=== PATIENT | female | born 1975 | race Asian ===

== ENCOUNTER → 2017-04-20 | Outpatient (CLI) | payer BC | LOC: FIMAGING 13:24 | PROVIDERS: ATTEND Advanced Practice Midwife | DX: O09.522 Supervision of elderly multigravida, second trimester (principal); O34.219 Maternal care for unspecified type scar from previous cesarean delivery; Z3A.19 19 weeks gestation of pregnancy ==

== ENCOUNTER 2017-09-08 10:35 | Inpatient (IN) | payer BC ==
[2017-09-08] MEDS ORDERED: OLIVE OIL 118 ML BTL MISC PRN (11:05)
[2017-09-08] MEDS ORDERED: EPSOM SALT 454 GM TP PRN (11:05)
[2017-09-08] MEDS ORDERED: AMPICILLIN SODIUM 2 GM in NS 100 ML IV ONE (11:05)
[2017-09-08] MEDS ORDERED: AMMONIA AROMATIC 1 EACH AMP IH PRN (11:05)
[2017-09-08] MEDS ORDERED: MISOPROSTOL 200 MCG TAB PO PRN (11:05)
[2017-09-08] MEDS ORDERED: LIDOCAINE 1% 300 MG/30 ML SDV SC PRN (11:05)
[2017-09-08] MEDS ORDERED: TERBUTALINE SULFATE 1 MG/ML VIAL IV PRN (11:05)
[2017-09-08] MEDS ORDERED: LR 1,000 ML IV PRN (11:05)
[2017-09-08] MEDS ORDERED: IBUPROFEN 600 MG TAB PO PRN (11:05)
[2017-09-08] MEDS ORDERED: OXYTOCIN/RINGERS LACTATE 1,000 ML IV PRN (11:05)
--- NOTE | 2017-09-08 12:05 | PDGENHP ---
History and Physical - Chief Complaint SROM at 0830 this morning - History of Present Illness 42 yo at 39w6d by IUI dating c/w 10 wk US, presents with SROM of clear fluid this morning at 0830, and the onset of contractions a few hours priot to that. care with [facility]. Preg C/B AMA - has followed std protocol of surveillance since 36wk. Hx of C/S with first delivery, arrest of descent at 8cm. Good FM, no VB, no ssx PIH. labs: 12.9/36.2 plt 211 O pos Ab scre neg RPR NR HbsAg neg HIV neg Std panel neg GC/Chl neg Innatal neg 28 wk: 12.7/37.0 1hr GTT 114 PMH: none POB: LTCS at 8 cm, at 41 wk, arrest of desccent, 7lb female PSH: C/S and D&C for MAB Medications: PNV All: NKDA Soc: to [place], -/-/-, scientis FamHx: M parkinson's and Rheum Arth O: VSS afeb 37.0 94 122/76 FHR 145 reactive, Cat 1 toco - q 2-3 SVE 3/80/-2, clear fluid gen - pleasant female, working through contractions CV - RRR chest - CTAB abd - gravid, soft, NT ext - trace BLE edema History Information - Allergies/Home Medication List Allergies/Adverse Reactions: No Known Allergies Allergy (Unverified 09/08/17 11:14) Home Medications: Vit27&Calcium/Iron/FA [] 1 tab PO DAILY 02/02/14 [Last Taken ] I have personally reviewed and updated: family history, medical history, social history, surgical history - Social History Smoking Status: Never smoked Review of Systems Review of Systems: ROS: 10pt was reviewed & negative except for what was stated in HPI & below Physical Exam Physical Exam: see HPI Assessment & Plan Assessment: 42 yo at 39w6d with SROM, in early labor, desires , GBS pos Plan: Admit Written informed consent signed. Amp for GBS pos. Anticipate Vag delivery Alcira Banks MD, FACOG, [facility]
[2017-09-08 12:29] LABS: PLATELET COUNT 167 10^3/uL (150-400)
--- NOTE | 2017-09-08 13:03 | SOAPPROG ---
SOAP Progress Note Assessment/Plan: Assessment: 42 yo at 39w6d with SROM x 4.5 hours, with chorioamnionitis ( fever, mat tachy, tachy) Plan: Add gentamicin. Already on amp for GBS pos. Continue to labor. Tylenol. Alcira Banks MD, FACOG, [facility] 09/08/17 13:00 Subjective: Informed of fever by RN Objective: Laboratory Results 09/08/17 12:00 39.6 114 117/70 - Time Spent With Patient Time Spent With Patient: not for this note - Pending Discharge Pending Discharge Within 24 Hours: No Pending Discharge Within 48 Hours: No ICD10 Worksheet Patient Problems: Problems Problem Status Onset AMA (advanced maternal age) multigravida 35+ Acute delivery delivered Acute intolerance to labor, delivered, current hospitalization Acute
[2017-09-08] MEDS ORDERED: ACETAMINOPHEN 500 MG TAB PO PRN (13:06)
[2017-09-08] MEDS ORDERED: GENTAMICIN PHARMACY TO DOSE MISC SCH (13:15)
[2017-09-08] MEDS ORDERED: CEFAZOLIN 1 GM/DEXTROSE/50 ML BAG IV ONE (13:28)
[2017-09-08] MEDS: D5W IV SCH (13:32)
[2017-09-08] MEDS: GENTAMICIN SULFATE IV SCH (13:32)
--- NOTE | 2017-09-08 14:29 | OBPROG ---
Labor Progress Note Assessment/Plan: Assessment: 42 yo at 39w6d with SROM x 4.5 hours, with chorioamnionitis ( fever, mat tachy, tachy) Plan: Add gentamicin. Already on amp for GBS pos. Continue to labor. Tylenol. Alcira Banks MD, FACOG, [facility] 09/08/17 14:25 A/P: Chorioamnionitis remote from delivery, tachycardia persistent over 2 hours, and now with occasional variable decelerations Written informed consent obtained. Will proceed with repeat C/S. Clindamycin pre-op added to gent and amp regimen. Alcira Banks MD, FACOG Subjective/Intrapartum Course: 09/08/17 14:29 Pt anxious about baby's welfare. Contractions are feeling a bit stronger. Objective: 09/08/17 12:00 Patient ABO/Rh O POSITIVE 09/08/17 12:00 - SVE Dilation (cm): 5 Effacement (%): 80 Station: 0 Membranes: SROM Amniotic Fluid Color: Bloody - Contraction Pattern Assessment Current Contraction Pattern: Regular Oxytocin Orders Assessment - Pre-Induction/Augmentation Assessment Gestational Age: 39 week(s) and 6 day(s) ICD10 Worksheet Patient Problems: Problems Problem Status Onset AMA (advanced maternal age) multigravida 35+ Acute delivery delivered Acute intolerance to labor, delivered, current hospitalization Acute
[2017-09-08] MEDS: CLINDAMYCIN 900 MG/DEXTROSE 50 ML IV SCH ×2 (14:43→22:56)
[2017-09-08] MEDS: AMPICILLIN SODIUM 1 GM in NS 100 ML IV SCH (15:54)
[2017-09-08] MEDS ORDERED: morphINE PF 5 MG/10 ML INJ ONE (16:46)
[2017-09-08] MEDS ORDERED: fentaNYL 100 MCG/2 ML INJ ONE (16:47)
--- NOTE | 2017-09-08 16:48 | OBPROG ---
Labor Progress Note Assessment/Plan: Assessment: 42 yo at 39w6d with SROM x 4.5 hours, with chorioamnionitis ( fever, mat tachy, tachy) Plan: Add gentamicin. Already on amp for GBS pos. Continue to labor. Tylenol. Alcira Banks MD, FACOG, [facility] 09/08/17 14:25 A/P: Chorioamnionitis remote from delivery, tachycardia persistent over 2 hours, and now with occasional variable decelerations Written informed consent obtained. Will proceed with repeat C/S. Clindamycin pre-op added to gent and amp regimen. Alcira Banks MD, FACOG 09/08/17 16:45 A/P: Delayed due to acuity of pts on unit, and status reassuring now, but recheck of cervix, still remote from delivery. Will proceed with C/S as originally planned. Subjective/Intrapartum Course: 09/08/17 14:29 Pt anxious about baby's welfare. Contractions are feeling a bit stronger. 09/08/17 16:46 Pt offered option to continue to proceed with labor, as has made progress, was told was 9 cm. I rechecked her myself and is 7cm dilated. Agrees to proceed with R-C/S now. Objective: 09/08/17 12:00 Patient ABO/Rh O POSITIVE 09/08/17 12:00 Temp Pulse Resp BP Pulse Ox 37.2 C 125 H 28 H 120/80 98 09/08/17 14:51 09/08/17 14:51 09/08/17 14:51 09/08/17 14:51 09/08/17 14:51 - SVE Dilation (cm): 7 Effacement (%): 90 Station: 0 Membranes: SROM Amniotic Fluid Color: Bloody - Contraction Pattern Assessment Current Contraction Pattern: Regular Oxytocin Orders Assessment - Pre-Induction/Augmentation Assessment Gestational Age: 39 week(s) and 6 day(s) ICD10 Worksheet Patient Problems: Problems Problem Status Onset AMA (advanced maternal age) multigravida 35+ Acute delivery delivered Acute intolerance to labor, delivered, current hospitalization Acute
[2017-09-08] MEDS ORDERED: OXYTOCIN 100 UNITS/10 ML VIAL ONE (17:23)
[2017-09-08] MEDS ORDERED: ONDANSETRON 4 MG/2 ML VIAL ONE ×2 (17:23)
[2017-09-08] MEDS ORDERED: DEXAMETHASONE 4 MG/ML VIAL ONE ×2 (17:23)
[2017-09-08] MEDS ORDERED: PHENYLEPHRINE HCL 100 MCG/ML SYR ONE (17:24)
[2017-09-08] MEDS ORDERED: PROMETHAZINE HCL 25 MG/ML INJ IVP PRN (18:21)
[2017-09-08] MEDS ORDERED: SIMETHICONE 80 MG TAB CHEW PO PRN (18:21)
[2017-09-08] MEDS ORDERED: DOCUSATE SODIUM 100 MG CAP PO PRN (18:21)
[2017-09-08] MEDS ORDERED: PHENYLEPHRINE HCL 100 MCG/ML SYR IVP PRN (18:25)
[2017-09-08] MEDS ORDERED: ONDANSETRON 4 MG/2 ML VIAL IVP PRN (18:25)
[2017-09-08] MEDS ORDERED: NALOXONE HCL 0.4 MG/ML INJ IVP PRN (18:25)
--- NOTE | 2017-09-08 18:27 | POSTANESTH ---
Post Anesthetic Evaluation Cardiovascular Status: Normal, Stable, Similar to Pre-Op Cond Respiratory Status: Normal, Stable, Similar to Pre-op Cond. Level of Consciousness/Mental Status: Can Participate in Eval, Alert and Oriented Pain Control: Adequate, Prn Tx Ordered Nausea/Vomiting Control: Adequate, Prn Tx Ordered Complications Possibly Related to Anesthesia: None Noted
--- NOTE | 2017-09-08 18:31 | PREANESOB ---
Obstetric Pre-Anesthesia Info - General Info Proposed Procedure: C Section. : 4 Para: 1 SANDOVAL: 09/09/17 Gestational Age: 39 week(s) and 6 day(s) - Info Status: Full Term Monitors: External FHR Baseline (bpm): 150 - Labor Status Cervical Dilation per last OB SVE: 7 Station per last OB SVE: 0 Amniotic Fluid Color: Bloody Indications for Current Section: Other (Specify) (Chorioamnionitis) Labor Epidural: No Anesthesia Allergies/Adverse Reactions: Allergy/AdvReac Type Severity Reaction Status Date / Time No Known Allergies Allergy Unverified 09/08/17 11:14 Home Medications: Medication Instructions Recorded Vit27&Calcium/Iron/FA 1 tab PO DAILY 02/02/14 [] Visit Medications: Generic Name Dose Route Start Last Admin Trade Name Freq PRN Reason Stop Dose Admin Acetaminophen 1,000 mg 09/08/17 13:06 09/08/17 13:19 Tylenol PO 03/07/18 13:05 1,000 mg Q6HRS PRN Administration Pain, Mild/Fever, Can Take PO Ammonia (Aromatic Spirit) 1 each 09/08/17 11:05 Ammonia Aromatic IH 09/18/17 11:04 ONCE PRN Fainting Diphenhydramine HCl 25 - 50 mg 09/08/17 18:25 Benadryl Injection IVP 09/09/17 18:24 Q6HRS PRN Itching Gentamicin Sulfate 1 each 09/08/17 13:15 Gentamicin Pharmacy To Dose MISC 03/07/18 13:14 AD SADE Protocol Ampicillin Sodium 1 gm/ Sodium 100 mls @ 200 mls/hr 09/08/17 15:05 09/08/17 15:54 Chloride IV 10/08/17 15:04 100 mls Q4H SADE Administration Protocol Lactated Ringer's 1,000 mls @ 0 mls/hr 09/08/17 11:05 09/08/17 12:04 Lr IV 09/09/17 11:04 1,000 mls PRN PRN Administration SEE PROTOCOL CONDITIONS Protocol Per Protocol Oxytocin/Lactated Ringer's 1,000 mls @ 0 mls/hr 09/08/17 11:05 Pitocin 20 Units/Lr (Premix) IV PRN PRN Post bleeding Per Protocol Gentamicin Sulfate 320 mg/ 108 mls @ 108 mls/hr 09/08/17 13:30 09/08/17 13:32 Dextrose IV 10/08/17 13:29 108 mls Q24H SADE Administration Clindamycin Phosphate/Dextrose 50 mls @ 100 mls/hr 09/08/17 14:30 09/08/17 14 :43 Cleocin 900 Mg (Premix) IV 09/09/17 14:29 50 mls Q8HRS SADE Administration Protocol Ibuprofen 600 mg 09/08/17 11:05 Motrin PO ONCE PRN post , pain Lidocaine HCl 300 mg 09/08/17 11:05 Lidocaine Hcl 1% SC 03/07/18 11:04 ONCE PRN episiotomy Magnesium Sulfate 454 gm 09/08/17 11:05 Epsom Salt TP 03/07/18 11:04 Q1H PRN perineal discomfort Misoprostol 800 - 1,000 mcg 09/08/17 11:05 Cytotec PO 03/07/18 11:04 ONCE PRN Vaginal Atony/Bleeding Naloxone HCl 0.4 mg 09/08/17 18:25 Narcan IVP 09/09/17 18:26 PRN PRN respiratory depression [place] Oil 118 ml 09/08/17 11:05 Sweet Oil MISC 03/07/18 11:04 ONCE PRN perineal massage Ondansetron HCl 4 mg 09/08/17 18:25 Zofran IVP 09/09/17 18:24 Q4HRS PRN Nausea/Vomiting, Can't Take PO Phenylephrine HCl 100 mcg 09/08/17 18:25 Neosynephrine IVP 09/08/17 19:25 Q1M PRN Hypotension Terbutaline Sulfate 0.25 mg 09/08/17 11:05 Brethine IV 03/07/18 11:04 ONCE PRN Tachysystole Discontinued Medications Generic Name Dose Route Start Last Admin Trade Name Freq PRN Reason Stop Dose Admin Cefazolin Sodium/Dextrose Confirm 09/08/17 13:28 Ancef 1 Gm (Premix) Administered 09/08/17 13:29 Dose 1 gm IV .STK-MED ONE Dexamethasone Confirm 09/08/17 17:23 Decadron Injection Administered 09/08/17 17:24 Dose 4 mg .ROUTE .STK-MED ONE Dexamethasone Confirm 09/08/17 17:23 Decadron Injection Administered 09/08/17 17:24 Dose 4 mg .ROUTE .STK-MED ONE Fentanyl Confirm 09/08/17 16:47 Sublimaze Administered 09/08/17 16:48 Dose 100 mcg .ROUTE .STK-MED ONE Ampicillin Sodium 2 gm/ Sodium 110 mls @ 220 mls/hr 09/08/17 11:05 09/08/17 12:04 Chloride IV 09/08/17 11:34 110 mls ONCE ONE Administration Protocol Clindamycin Phosphate/Dextrose 50 mls @ 100 mls/hr 09/08/17 22:00 Cleocin 900 Mg (Premix) IV 09/09/17 21:59 Q8HRS SADE Protocol Morphine Sulfate Confirm 09/08/17 16:46 Morphine Pf 5 Mg/10 Ml Administered 09/08/17 16:47 Dose 5 mg .ROUTE .STK-MED ONE Ondansetron HCl Confirm 09/08/17 17:23 Zofran Administered 09/08/17 17:24 Dose 4 mg .ROUTE .STK-MED ONE Ondansetron HCl Confirm 09/08/17 17:23 Zofran Administered 09/08/17 17:24 Dose 4 mg .ROUTE .STK-MED ONE Oxytocin Confirm 09/08/17 17:23 Pitocin Administered 09/08/17 17:24 Dose 100 units .ROUTE .STK-MED ONE Phenylephrine HCl Confirm 09/08/17 17:24 Neosynephrine Administered 09/08/17 17:25 Dose 1,000 mcg .ROUTE .STK-MED ONE - Anesthesia History Response to Local Anesthetics: Normal Anesthesia & Operative History: No Prior Problems Family Anesthesia History: Negative - Social History Substance Use/Abuse: Denies - Vital Signs Latest Vital Signs (Nursing): Temp Pulse Resp BP Pulse Ox 37.2 C 125 H 28 H 120/80 98 09/08/17 14:51 09/08/17 14:51 09/08/17 14:51 09/08/17 14:51 09/08/17 14:51 Blood Pressure: 120/80 Heart Rate: 125 Height/Weight (Nursing): Height 165.1 cm Weight 63.503 kg - Focused Exam Neck exam: FROM Mallampati Score: Class 1 Mouth exam: normal dental/mouth exam Pulmonary: no respiratory distress Cardiovascular: regular rate and rhythym Labs: 09/08/17 12:00 Patient ABO/Rh O POSITIVE 09/08/17 12:00 - Plan Anesthetic Plan: SAB Consent Signed and on Chart: Yes Patient/Guardian Understands and Agrees to Plan: Yes Urgent/Emergent Case: Anes eval completed preop but documented later for safe timely pt care
[2017-09-08] MEDS ORDERED: oxyCODONE IR 5 MG TAB PO PRN (18:32)
--- NOTE | 2017-09-08 18:50 | POSTOPPROG ---
Post Op Note Date of Operation: 09/08/17 Surgeon: Alcira Banks Educational Therapist: Ligia Coello DO Anesthesiologist: Guillermo Juarez MD Anesthesia: Spinal Pre-op Diagnosis: chorioamnionitis remote from delivery, prior section Post-op Diagnosis: chorioamnionitis remote from delivery, prior section Indication: chorioamnionitis remote from delivery, prior section Procedure: Repeat section Findings: normal appearing uterus, tubes, ovaries, female baby Apgars 8 and 9 Inf/Abcess present in the surg proc area at time of surgery?: No EBL: 500-1000 Total fluids administered: 1999 Complications: none
[2017-09-08] MEDS ORDERED: KETOROLAC 30 MG/1 ML SDV ONE (19:27)
[2017-09-08] MEDS: KETOROLAC 30 MG/1 ML SDV IVP SCH (19:36)
--- NOTE | 2017-09-08 19:55 | GOP ---
[f rep st] OPERATIVE REPORT DATE OF OPERATION: 09/08/2017 SURGEON: Alcira Banks MD CURLING MACHINE OPERATOR: Ligia Coello DO. Need for adequate retraction and exposure. ANESTHESIOLOGIST: Ben Juarez MD. PREOPERATIVE DIAGNOSIS: Chorioamnionitis, remote from delivery, failed Vaginal after attempt POSTOPERATIVE DIAGNOSIS: Chorioamnionitis, remote from delivery, failed Vaginal after attempt PROCEDURE PERFORMED: Repeat Low Transverse Section FINDINGS: Normal-appearing uterus, tubes, and ovaries. Female delivered from the vertex presentation with of 8 and 9. IV FLUIDS: 2000 mL. URINE OUTPUT: 300 mL by urinary catheter. COMPLICATIONS: None. ESTIMATED BLOOD LOSS: 800 mL. INDICATIONS: 42-year-old 4, P 1-0-2-1, who presented in labor at 39 weeks and 6 days after rupture of membranes, releasing clear fluid. She has a history of a prior - arrest of dilation/descent at 8 cm. She progressed slowly and developed chorioamnionitis. Persistent tachycardia occurred for 2-3 hours after diagnosis. The decision was made to pursue the section. She was checked immediately prior to being taken to the operating room and her cervix was 7 cm dilated. Written informed consent was obtained. She was taken to the operating room. DESCRIPTION OF PROCEDURE: In the operating room, time-out was performed. Spinal anesthetic was placed. She was then placed in the dorsal supine position. She was prepped and draped in the standard fashion. A Stapleton catheter was already in place. Due to the chorioamnionitis, she had already received numerous doses of ampicillin, a dose of gentamycin, and a dose of clindamycin. A time out was performed. An incision was made in the skin and taken down sharply to the fascia. The fascia was incised in the midline and this was extended laterally. The superior aspect of the incision was grasped with Aletha clamps. The muscle was dissected away sharply and bluntly from the fascia. This was repeated on the lower aspect of the incision. The rectus muscles were in the midline and the peritoneum was entered bluntly. The peritoneal opening was extended in a blunt fashion. A bladder flap was created sharply. A bladder blade was placed over the bladder flap. Incision was made into the uterus and extended laterally in a blunt fashion. Clear fluid was released. The vertex was able to be grasped and elevated up and through the hysterotomy. mouth and nose were bulb suctioned. The remainder of the fetus was delivered easily with the assistance of fundal pressure. Delayed cord clamping occurred for 1 minute. The was handed to the awaiting SEARCH ENGINE OPTIMIZER. The placenta then delivered with the assistance of uterine massage. The hysterotomy was repaired in a running locked fashion for the 1st layer with 0 Monocryl. A 2nd imbricating layer was placed, also with 0 Monocryl suture. The gutters were cleared of all clots and debris. The uterus was replaced into the abdomen. Hemostasis at the hysterotomy was noted after the use of some cautery. The fascia was then closed with 0 PDS in a running fashion. Calvin's fascia was then closed with 3-0 Monocryl in a running fashion. The skin was then closed with 4-0 Monocryl in a running subcuticular fashion. Benzoin and Steri-Strips were placed over the incision. A dressing was then also placed. Sponge, lap, and needle counts were correct x2. The patient was taken to the recovery room in stable condition. /[id number]/MODL MTDD
[2017-09-08] MEDS ORDERED: AMPICILLIN SODIUM 1 GM in NS 100 ML IV SCH (22:00)
[2017-09-08] MEDS ORDERED: CLINDAMYCIN 900 MG/DEXTROSE 50 ML IV SCH (22:00)
[2017-09-09] MEDS: ACETAMINOPHEN 325 MG TAB PO SCH ×5 (00:13→20:56)
[2017-09-09] MEDS: AMPICILLIN SODIUM 1 GM in NS 100 ML IV SCH (00:43)
[2017-09-09] MEDS: KETOROLAC 30 MG/1 ML SDV IVP SCH ×3 (02:06→14:48)
--- NOTE | 2017-09-09 09:38 | OBPP ---
Progress Note Assessment/Plan: Assessment: [id number] s/p repeat c/s with chorio POD#1 anemia Plan: routine post op care cont abx, last dose @ 1330, july d/c hep lock after d/c lagos today start PO iron BID cont plan to d/c home 48-72hrs 09/09/17 09:35 09/09/17 09:39 Subjective/ Course: 09/09/17 09:37 Pt doing well, she denies any pain or heavy bleeding. she is . She is out of bed, will plan to ambulate. voiding via lagos. Objective: 09/09/17 06:15 Patient ABO/Rh O POSITIVE 09/08/17 12:00 Temp Pulse Resp BP Pulse Ox 36.6 C 81 16 80/56 L 95 09/09/17 08:00 09/09/17 08:00 09/09/17 08:00 09/09/17 08:00 09/09/17 08:00 Uterine Position/Fundal Height: Umbilicus -1, Midline Uterine Tone: Firm Physical Exam - Physical Exam General Appearance: WD/WN, alert, no apparent distress Respiratory: lungs clear, normal breath sounds Cardiac/Chest: regular rate, rhythm Abdomen: non-tender, soft, dressing (C/D/I) Extremities: non-tender Skin: normal color, warm/dry Neuro/Psych: alert, normal mood/affect, oriented x 3
[2017-09-09] MEDS ORDERED: IRON POLYSAC/IRON HEME 28 MG TAB PO SCH (09:45)
[2017-09-09] MEDS: FERROUS SULFATE 325 MG TAB PO SCH ×2 (12:34→20:56)
[2017-09-09] MEDS: GENTAMICIN SULFATE IV SCH (13:39)
[2017-09-09] MEDS: D5W IV SCH (13:39)
[2017-09-10] MEDS: ACETAMINOPHEN 325 MG TAB PO SCH ×4 (04:42→23:50)
[2017-09-10] MEDS: FERROUS SULFATE 325 MG TAB PO SCH ×2 (10:30→20:45)
--- NOTE | 2017-09-10 13:06 | OBPP ---
Progress Note Assessment/Plan: Assessment: 42 yo at 39w6d with SROM x 4.5 hours, with chorioamnionitis ( fever, mat tachy, tachy) Plan: Add gentamicin. Already on amp for GBS pos. Continue to labor. Tylenol. Alcira Banks MD, FACOG, [facility] 09/08/17 14:25 A/P: Chorioamnionitis remote from delivery, tachycardia persistent over 2 hours, and now with occasional variable decelerations Written informed consent obtained. Will proceed with repeat C/S. Clindamycin pre-op added to gent and amp regimen. Alcira Banks MD, FACOG 09/08/17 16:45 A/P: Delayed due to acuity of pts on unit, and status reassuring now, but recheck of cervix, still remote from delivery. Will proceed with C/S as originally planned. 09/10/17 13:02 A/P: 42 yo [id number], POD#2 s/p R-C/S, Failed in setting of chorioamnionitis remote from delivery. Received one dose each of amp, gent and clinda in the period. Has been afebrile. Doing well, continue routine post op cares. Anticipate dc home tomorrow. Rx for oxycodone sent down to [facility], will keep secure on unit until ready for dc tomorrow. Alcira Banks MD, FACOG [facility] 09/10/17 13:09 Subjective/ Course: 09/09/17 09:37 Pt doing well, she denies any pain or heavy bleeding. she is . She is out of bed, will plan to ambulate. voiding via lagos. 09/10/17 13:04 Doing well. Has only been taking Tylenol for pain. going well - has been pumping too. Ambulating, voiding, + BM all without difficulty. Ghada reg diet. Objective: 09/09/17 06:15 Patient ABO/Rh O POSITIVE 09/08/17 12:00 Temp Pulse Resp BP Pulse Ox 36.9 C 75 16 93/61 L 93 09/10/17 05:00 09/10/17 05:00 09/10/17 05:00 09/10/17 05:00 09/10/17 05:00 gen - pleasant female, in street clothes CV - RRR chest - CTAB abd - soft, fundus firm at u-3, + BS, inc - C/D/I with steristrips (some residural dry sanguinous drng present < 1 cm) ext - calves NT, tr edema Uterine Position/Fundal Height: Umbilicus -3 Uterine Tone: Firm
[2017-09-10 20:04] VITALS: BP 96/66
[2017-09-11] MEDS: ACETAMINOPHEN 325 MG TAB PO SCH ×2 (05:48→08:11)
[2017-09-11] MEDS: FERROUS SULFATE 325 MG TAB PO SCH (08:09)
--- NOTE | 2017-09-11 10:34 | OBPP ---
Progress Note Assessment/Plan: Assessment: 42 y/o POD #3 s/p Rpt c section secondary to failed Plan: D/c home today with Rx Oxycodone prn and Tylenol and Ibuprofen prn. Follow-up @ [facility] 2, 4 and 6 weeks. 09/11/17 10:35 Subjective/ Course: 09/09/17 09:37 Pt doing well, she denies any pain or heavy bleeding. she is . She is out of bed, will plan to ambulate. voiding via lagos. 09/10/17 13:04 Doing well. Has only been taking Tylenol for pain. going well - has been pumping too. Ambulating, voiding, + BM all without difficulty. Ghada reg diet. 09/11/17 10:27 Pt is doing well today. She has good pain control on only Tylenol. She is ambulating and voiding well without difficulty. She has min lochia and had a + BM this am. Breast feeding is going well and baby is good and they are ready to d/c home. Objective: 09/09/17 06:15 Patient ABO/Rh O POSITIVE 09/08/17 12:00 Temp Pulse Resp BP Pulse Ox 36.9 C 96 20 96/66 L 95 09/10/17 20:00 09/10/17 20:00 09/10/17 20:00 09/10/17 20:00 09/10/17 20:00 Uterine Position/Fundal Height: Umbilicus -2 Physical Exam - Physical Exam General Appearance: alert, no apparent distress Neck: non-tender, full range of motion, supple Respiratory: chest non-tender, lungs clear, normal breath sounds Cardiac/Chest: regular rate, rhythm Abdomen: normal bowel sounds, incision (c/d/i) Extremities: swelling (no), Jeremiah's sign (neg)
--- NOTE | 2017-09-11 10:42 | OBDEL ---
Info Type: Repeat Presentation at Delivery: Vertex L&D Analgesia/Anesthesia Type: Spinal GBS+: Yes Antibiotic Used for + GBS: Ampicillin Intrapartum Medications: Generic Name Dose Route Start Last Admin Trade Name Andrew PRN Reason Stop Dose Admin Acetaminophen 650 mg 09/09/17 00:00 09/11/17 08:11 Tylenol PO 03/08/18 00:00 650 mg Q6HRS SADE Administration Ferrous Sulfate 325 mg 09/09/17 09:45 09/11/17 08:09 Ferrous Sulfate PO 03/08/18 09:44 325 mg BID SADE Administration Oxytocin/Lactated Ringer's 1,000 mls @ 0 mls/hr 09/08/17 11:05 09/08/17 19:36 Pitocin 20 Units/Lr (Premix) IV 1,000 mls PRN PRN Administration Post bleeding Per Protocol Discontinued Medications Generic Name Dose Route Start Last Admin Trade Name Andrew PRN Reason Stop Dose Admin Acetaminophen 1,000 mg 09/08/17 13:06 09/08/17 13:19 Tylenol PO 03/07/18 13:05 1,000 mg Q6HRS PRN Administration Pain, Mild/Fever, Can Take PO Ampicillin Sodium 2 gm/ Sodium 110 mls @ 220 mls/hr 09/08/17 11:05 09/08/17 12:04 Chloride IV 09/08/17 11:34 110 mls ONCE ONE Administration Protocol Ampicillin Sodium 1 gm/ Sodium 100 mls @ 200 mls/hr 09/08/17 15:05 09/09/17 00:43 Chloride IV 10/08/17 15:04 Not Given Q4H SADE Protocol Lactated Ringer's 1,000 mls @ 0 mls/hr 09/08/17 11:05 09/08/17 12:04 Lr IV 09/09/17 11:04 1,000 mls PRN PRN Administration SEE PROTOCOL CONDITIONS Protocol Per Protocol Gentamicin Sulfate 320 mg/ 108 mls @ 108 mls/hr 09/08/17 13:30 09/09/17 13:39 Dextrose IV 09/09/17 14:29 108 mls Q24H SADE Administration Clindamycin Phosphate/Dextrose 50 mls @ 100 mls/hr 09/08/17 14:30 09/08/17 22 :56 Cleocin 900 Mg (Premix) IV 09/08/17 22:29 50 mls Q8HRS SADE Administration Protocol Ampicillin Sodium 1 gm/ Sodium 100 mls @ 200 mls/hr 09/08/17 22:00 09/08/17 22:02 Chloride IV 09/08/17 22:29 100 mls Q6H SADE Administration Protocol Ketorolac Tromethamine 30 mg 09/09/17 00:00 09/09/17 14:48 Toradol IVP 09/09/17 18:01 30 mg Q6HRS SADE Administration - Hospital Course Intrapartum: 09/08/17 14:29 Pt anxious about baby's welfare. Contractions are feeling a bit stronger. 09/08/17 16:46 Pt offered option to continue to proceed with labor, as has made progress, was told was 9 cm. I rechecked her myself and is 7cm dilated. Agrees to proceed with R-C/S now. Indications for Delivery: Spontaneous Labor Vaginal Delivery - Labor and Delivery Onset of Contractions Date: 09/08/17 Onset of Contractions Time: 02:00 Rupture of Membranes Date: 09/08/17 Rupture of Membranes Time: 08:30 Amniotic Fluid Color: Bloody Placenta Delivery Date: 09/08/17 Placenta Delivery Time: 17:25 Total Hours of Labor: 15 Operative Report - Delivery Pre-op Diagnoses: IUP @ 39 6/7 weeks, failed with chorioamnionitis Post-op Diagnoses: same History of Prior Section: Yes Number of Prior Sections: 1 Nulliparous Prior to Delivery: No Indications for Prior Section: Arrest of Dilation (failed , chorioamnionitis), Non-reas. Status Indications for Current Section: Other (Specify) (Chorioamnionitis) Procedure: Unscheduled Surgeon: Alcira Banks Carpet Renovator: Ligia Coello Anesthesiologist: Ben Juarez Complications: None IV Fluid (ml): 2,000 EBL: 800 Pooler Data SANDOVAL: 09/09/17 Gestational Age: 40 week(s) and 2 day(s) [place] Delivery Date: 09/08/17 Delivery Time: 17:24 Sex of Infant: Female Pooler Weight (gm): 3672 g Score (1 Min): 8 Score (5 Min): 9 ICD10 Worksheet Patient Problems: Problems Problem Status Onset AMA (advanced maternal age) multigravida 35+ Acute delivery delivered Acute intolerance to labor, delivered, current hospitalization Acute
--- NOTE | 2017-09-11 10:43 | OBGCSDC ---
General Delivery Information - General Info : 4 Para: 2 Abortions: 2 Type: Repeat L&D Analgesia/Anesthesia Type: Spinal Admission Date: 09/08/17 Labs: Patient ABO/Rh O POSITIVE 09/08/17 12:00 Hct 30.9 % (38.0-47.0) L 09/09/17 06:15 - Hospital Course Intrapartum: 09/08/17 14:29 Pt anxious about baby's welfare. Contractions are feeling a bit stronger. 09/08/17 16:46 Pt offered option to continue to proceed with labor, as has made progress, was told was 9 cm. I rechecked her myself and is 7cm dilated. Agrees to proceed with R-C/S now. : 09/09/17 09:37 Pt doing well, she denies any pain or heavy bleeding. she is . She is out of bed, will plan to ambulate. voiding via [place]. 09/10/17 13:04 Doing well. Has only been taking Tylenol for pain. going well - has been pumping too. Ambulating, voiding, + BM all without difficulty. Ghada reg diet. 09/11/17 10:27 Pt is doing well today. She has good pain control on only Tylenol. She is ambulating and voiding well without difficulty. She has min lochia and had a + BM this am. Breast feeding is going well and baby is good and they are ready to d/c home. Vaginal - Diagnosis Amniotic Fluid Color: Bloody - Delivery Providers Surgeon: Alcira Banks Kindergarten Teacher: Ligia Coello Anesthesiologist: Ben Juarez - Delivery Number of Prior Sections: 1 Indications for Current Section: Other (Specify) (Chorioamnionitis) Surgical Procedures: Unscheduled Intra-op Complications: None EBL: 800 Data SANDOVAL: 09/09/17 Gestational Age: 40 week(s) and 2 day(s) [place] Delivery Date: 09/08/17 Delivery Time: 17:24 Sex of Infant: Female Weight (gm): 3672 g Score (1 Min): 8 Score (5 Min): 9 Discharge Information - Discharge Information Prescriptions: oxyCODONE IR [Oxycodone Ir (*)] 5 mg PO Q4HRS PRN #20 tab PRN Reason: Pain, Severe Able To Take Po Condition: Good Instruction/Follow Up: Two Weeks, Four Weeks, Six Weeks
== END 2017-09-11 12:00 | disposition home or self-care (01) | DRG 766 ==
LOC: FLD 10:35 → OBSVTOIN 11:08 → FLD 19:17 → FOB 21:04
PROVIDERS: ADMIT Obstetrics & Gynecology; ATTEND Obstetrics & Gynecology
PROC: 10D00Z1 Extraction of Products of Conception, Low, Open Approach (ICD-10-PCS; principal; 2017-09-08)
DX: O41.1230 Chorioamnionitis, third trimester, not applicable or unspecified (principal); Z37.0 Single live birth; O76 Abnormality in fetal heart rate and rhythm complicating labor and delivery; Z3A.39 39 weeks gestation of pregnancy; O99.824 Streptococcus B carrier state complicating childbirth; O34.219 Maternal care for unspecified type scar from previous cesarean delivery
CPT/HCPCS: J0290; J0690; J1100; J1580; J1885; J2274; J2370; J2405; J2590; J3010